=== PATIENT | male | born 1995 | race Caucasian/White ===

== ENCOUNTER 2017-03-25 02:20 | Emergency (ER) | payer BC ==
[~2017-03-25] VITALS: Ht 190.5 cm; Wt 75.0 kg
[2017-03-25 02:22] VITALS: BP 121/77; PULSE 98; RESP 16; TEMP 98.6; O2SAT 99
--- NOTE | 2017-03-25 02:49 | PD ---
HPI Chief Complaint: Head Injury Time Seen by Provider: 02:30 Travel History International Travel<30 days: No Contact w/Intl Traveler<30days: No Traveled to known affect area: No History of Present Illness HPI 21-year-old white male presents to emergency department for evaluation of a scalp laceration which occurred prior to arrival. The patient states that he had fallen off his long board skateboard. The patient struck his head on the ground. No syncope. No neck or back pain. No numbness, tingling or weakness. No visual changes. He is up-to-date with immunizations. Patient noted a laceration and came into ER for evaluation. [facility] Past Medical History Medical History: Denies Significant Hx Diminished Hearing: No Tetanus Vaccination: < 5 Years Past Surgical History Surgical History: No Previous Surgery Social History Alcohol Use: No Tobacco Use: No Substance Use: No Allergies-Medications (Allergen,Severity, Reaction): Coded Allergies: No Known Allergies (Unverified , 11/19/16) Reported Meds & Prescriptions Reported Meds & Active Scripts Active No Active Prescriptions or Reported Medications Review of Systems General / Constitutional: No: Fever Eyes: No: Visual changes HENT: No: Headaches Cardiovascular: No: Chest Pain or Discomfort Respiratory: No: Shortness of Breath Gastrointestinal: No: Abdominal Pain Genitourinary: No: Dysuria Musculoskeletal: No: Pain Skin: No Rash Neurologic: No: Weakness Psychiatric: No: Depression Endocrine: No: Polydipsia Hematologic/Lymphatic: No: Easy Bruising Physical Exam Narrative GENERAL: Well-developed, well-nourished in no apparent distress. Nontoxic appearing. HEAD: Normocephalic, patient has a 2.5 cm scalp laceration EYES: Pupils equal round and reactive. Extraocular motions intact. No scleral icterus. No injection or drainage. ENT: Nose clear. Throat without erythema, tonsillar hypertrophy or exudate. Uvula midline. Airway patent. NECK: Trachea midline. Supple, nontender, moves head freely. No central bony tenderness or spasm. CARDIOVASCULAR: Regular rate and rhythm without murmurs, gallops, or rubs. RESPIRATORY: Clear to auscultation. Breath sounds equal bilaterally. No wheezes , rales, or rhonchi. GASTROINTESTINAL: Abdomen soft, non-tender, nondistended. No hepato-splenomegaly , or palpable masses. No guarding. EXTREMITIES: No clubbing, cyanosis, or edema. No joint tenderness. BACK: Nontender without deformity. No flank tenderness. NEUROLOGICAL: Awake, alert and oriented x 3 .Cranial nerves grossly intact. Motor and sensory grossly within normal limits. Normal speech. Data Data Last Documented VS Vital Signs Date Time Temp Pulse Resp B/P (MAP) Pulse Ox O2 Delivery O2 Flow Rate FiO2 03/25/17 02:22 98.6 98 16 121/77 (92) 99 Orders Orders Ed Discharge Order (03/25/17 02:45) MDM Medical Decision Making Medical Screen Exam Complete: Yes Emergency Medical Condition: Yes Medical Record Reviewed: Yes Differential Diagnosis MDM: High Differential diagnoses: Fracture, sprain, strain, dislocation, contusion, neurovascular injury Narrative Course Patient's laceration is closed vini Procedures Procedure Narrative LACERATION LOCATION: Posterior scalp LENGTH: 2.5 center meters NUMBER OF STITCHES/VINI: 3 REPAIR: The area of the laceration was prepped with Betadine and sterilely draped. The wound was copiously irrigated and explored without evidence of foreign body, tendon injury or neurovascular injury. The wound was closed using vini. This was a single layer repair. A sterile dressing was applied. The patient was advised to keep the dressing clean and dry. Patient tolerated the procedure well. Diagnosis Primary Impression: scalp laceration Additional Impression: head contusion Patient Instructions: General Instructions Departure Forms: School Release, Please excuse from school until (free text option): No PE 1-2 days. Tests/Procedures Additional Instructions: Rest. Elevation. Tylenol and Advil for pain. Head precautions. Daily wound care with soap, water, Neosporin. Sutures out in 7-9 days. Follow-up with the clinic at school. Return to the ER if any problems. Med/Other Pt SpecificInfo: Wound Care Scripts No Active Prescriptions or Reported Meds Disposition: 01 DISCHARGE HOME Condition: Stable Omi Collins Mar 25, 2017 02:49
== END 2017-03-25 02:55 | disposition home or self-care (01) ==
LOC: NEPD 02:20
DX: S01.01XA Laceration without foreign body of scalp, initial encounter (principal); V00.131A Fall from skateboard, initial encounter; Y93.51 Activity, roller skating (inline) and skateboarding
CPT/HCPCS: 12001